=== PATIENT | male | born 1960 | race African-American/Black ===

== ENCOUNTER 2017-12-19 15:36 | Observation (INO) | payer OTHER, SELFPAY ==
[2017-12-19 16:45] LABS: Troponin I Less than 0.010 ng/mL (< 0.028)
[2017-12-19] MEDS ORDERED: Acetaminophen 325 MG TAB PO PRN ×2 (17:45→19:46)
[2017-12-19] MEDS ORDERED: Ondansetron ODT 4 MG TAB SL PRN (17:45)
[2017-12-19] MEDS ORDERED: Ondansetron HCl/PF 4 MG/2 ML Vial IVP PRN (17:45)
[2017-12-19] MEDS ORDERED: Nitroglycerin 2% Ointment 1 INCH/1 GM Packet TOP SCH (18:00)
[2017-12-19 18:02] VITALS: BMI 23.3
[2017-12-19] MEDS ORDERED: Nitroglycerin 0.4 MG TAB (25 Tab Bottle) PO PRN (19:44)
[2017-12-19] MEDS ORDERED: Mag-Al 1200 mg/1200 mg/30 ML UDCUP PO PRN (19:46)
[2017-12-19] MEDS ORDERED: Senokot 8.6 MG TAB PO PRN (19:46)
[2017-12-19] MEDS ORDERED: Calcium Carbonate 500 MG ChewTAB PO PRN (19:46)
[2017-12-19 19:47] LABS: Troponin I Less than 0.010 ng/mL (< 0.028)
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
[2017-12-20] MEDS ORDERED: Lisinopril 20 MG TAB PO SCH (09:00)
[2017-12-20] MEDS ORDERED: Aspirin 325 MG TAB PO SCH (09:00)
[2017-12-20] MEDS ORDERED: Carvedilol 25 MG TAB PO SCH (09:00)
[2017-12-20] MEDS ORDERED: Atorvastatin Calcium 40 MG TAB PO SCH (09:00)
--- NOTE | 2017-12-20 14:31 | NM ---
MYOCARDIAL PERFUSION SCAN WITH SPECT IMAGING: HISTORY: Chest pain. Examination was performed using 29 mCi 99m Technetium sestamibi on the stress and 9 on the resting im ages. This shows a normal distribution of the radiopharmaceutical without signs of ischemia or scar. WALL MOTION: There is symmetric contractility to the ventricle. LEFT VENTRICULAR EJECTION FRACTION: The calculated left ventricular ejection fraction was 50%. IMPRESSION: 1. No evidence of ischemia. 2. Left ventricular ejection fraction calculated at 50%. Please correlate with echocardiogram. POS: LON
[2017-12-20 15:49] VITALS: BP 135/85; TEMP 98.5
== END 2017-12-20 17:09 | disposition home or self-care (01) ==
LOC: ERS 15:36 → 2SW 16:00
PROVIDERS: ADMIT Internal Medicine; ATTEND Internal Medicine
DX: R07.89 Other chest pain (principal); I25.10 Atherosclerotic heart disease of native coronary artery without angina pectoris; Z95.1 Presence of aortocoronary bypass graft; I10 Essential (primary) hypertension; E78.5 Hyperlipidemia, unspecified; F17.210 Nicotine dependence, cigarettes, uncomplicated; Z79.82 Long term (current) use of aspirin; Z79.899 Other long term (current) drug therapy; Z79.1 Long term (current) use of non-steroidal anti-inflammatories (NSAID)
CPT/HCPCS: 36415; 78452; 90471; 90732; 93005; 93017; A9500; G0009; G0378

== ENCOUNTER 2018-03-23 06:26 | Inpatient (IN) | payer SELFPAY ==
[2018-03-23 08:37] LABS: CKMB 25.2 ng/mL (0-6.6); Troponin I 2.443 ng/mL (< 0.028)
[2018-03-23] MEDS ORDERED: Acetaminophen 325 MG TAB PO PRN ×2 (09:31→13:48)
[2018-03-23] MEDS ORDERED: Ondansetron ODT 4 MG TAB PO PRN ×2 (09:32→13:48)
[2018-03-23] MEDS ORDERED: Ondansetron HCl/PF 4 MG/2 ML Vial IVP PRN ×2 (09:32→13:48)
[2018-03-23 09:42] VITALS: BMI 22.7
[2018-03-23] MEDS ORDERED: Aspirin 325 MG TAB PO SCH (09:45)
[2018-03-23 11:41] LABS: Troponin I 3.948 ng/mL (< 0.028)
[2018-03-23] MEDS ORDERED: Carvedilol 3.125 MG TAB PO SCH ×2 (13:02)
[2018-03-23] MEDS ORDERED: Acetaminophen 650 MG Suppository PR PRN (13:48)
[2018-03-23] MEDS ORDERED: Nitroglycerin 2% Ointment 1 INCH/1 GM Packet TOP SCH (14:00)
[2018-03-23] MEDS ORDERED: Enoxaparin Sodium 80 MG/0.8 ML SYRINGE SC SCH ×2 (14:00→17:00)
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
[2018-03-23 14:26] LABS: CKMB 27.2 ng/mL (0-6.6); Troponin I 4.333 ng/mL (< 0.028)
[2018-03-23] MEDS: Nitroglycerin 2% Ointment 1 INCH/1 GM Packet TOP SCH ×2 (15:02→23:11)
[2018-03-23] MEDS: Enoxaparin Sodium 80 MG/0.8 ML SYRINGE SC SCH ×4 (15:03→22:01)
[2018-03-23 16:42] LABS: Hemoglobin 14.4 g/dL (14.0-18.0); Platelet Count 117 thou/uL (130-400)
[2018-03-23] MEDS: Carvedilol 3.125 MG TAB PO SCH (17:01)
[2018-03-23] MEDS ORDERED: Atorvastatin Calcium 40 MG TAB PO SCH (21:00)
[2018-03-23] MEDS: Famotidine 20 MG TAB PO SCH (21:56)
[2018-03-23 22:26] LABS: Critical Call CKMBM RESULT DECREASING; Critical Call Chem Troponin I RESULT DECREASING; Troponin I 3.423 ng/mL (< 0.028)
[2018-03-24] MEDS: Nitroglycerin 2% Ointment 1 INCH/1 GM Packet TOP SCH ×3 (05:59→23:23)
[2018-03-24 06:08] LABS: Anion Gap 12 mmol/L (10-20); BUN (Urea Nitrogen) 13 mg/dL (8.4-25.7); Calc. Creatinine Clearance 65 mL/min (70-130); Calcium 8.8 mg/dL (7.8-10.44); Carbon Dioxide 26 mmol/L (22-29); Cardiac Risk 4.5 (Less than 4.5); Chloride 106 mmol/L (98-107); Cholesterol 122 mg/dl (< 200 Desired); Estimated GFR-MDRD 77; Glucose 133 mg/dL (70-105); HDL Cholesterol 27 mg/dL (>60 Neg Risk); LDL Cholesterol, Calculated 64 mg/dL; Magnesium 2.3 mg/dL (1.6-2.6); Potassium 3.7 mmol/L (3.5-5.1); Sodium 140 mmol/L (136-145); Triglycerides 154 mg/dL (Less than 150)
[2018-03-24 06:11] LABS: CKMB 10.1 ng/mL (0-6.6); Critical Call CKMBM RESULT DECREASING; Critical Call Chem Troponin I RESULT DECREASING; Troponin I 3.372 ng/mL (< 0.028)
[2018-03-24 06:38] LABS: Hemoglobin 14.2 g/dL (14.0-18.0); Lymphocytes 34 % (21-51); MDiff Complete? YES; Mean Corpuscular Hemoglobin 28.7 pg (27.0-31.0); Mean Corpuscular Volume 87.2 fL (78.0-98.0); Mean Platelet Volume 11.4 fL (7.4-10.4); Monocytes 10 % (0-10); Neutrophil 56 % (42-75); PLT Morphology Comment Appears Adequate; Platelet Count 115 thou/uL (130-400); RBC Distribution Width 13.9 % (11.5-14.5); RBC Morphology Normal; Red Blood Cell (RBC) Count 4.95 mill/uL (4.70-6.10); White Blood Cell (WBC) Count 5.9 thou/uL (4.8-10.8)
[2018-03-24] MEDS ORDERED: Sodium Chloride 0.9% 10 ML ONE (08:42)
[2018-03-24] MEDS ORDERED: Lisinopril 20 MG TAB PO SCH (09:00)
[2018-03-24] MEDS: Atorvastatin Calcium 40 MG TAB PO SCH (09:33)
[2018-03-24] MEDS: Aspirin 325 MG TAB PO SCH (09:33)
[2018-03-24] MEDS: Famotidine 20 MG TAB PO SCH ×2 (09:33→20:47)
[2018-03-24] MEDS: Furosemide 20 MG TAB PO SCH (09:34)
[2018-03-24] MEDS: Carvedilol 3.125 MG TAB PO SCH ×2 (09:34→17:43)
[2018-03-24] MEDS: Lisinopril 20 MG TAB PO SCH (09:34)
[2018-03-24] MEDS: Enoxaparin Sodium 80 MG/0.8 ML SYRINGE SC SCH ×2 (09:35→20:48)
--- NOTE | 2018-03-24 13:34 | PDOC.CTH ---
<Tianna Bartlett - Last Filed: 03/24/18 13:32> Cardiology Progress Note - Subjective The pt seen and examined. No overnight events. No cardiac complaints. - Objective Vital Signs Temp Pulse Resp BP BP Pulse Ox 03/24/18 09:34 135/79 03/24/18 08:00 98.0 F 61 18 97 03/24/18 07:52 98.0 F 61 18 135/79 98 03/24/18 04:00 98 F 55 L 16 130/73 95 Weight 145 lb 4.8 oz 03/23/18 03/24/18 03/25/18 06:59 06:59 06:59 Intake Total 720 Balance 720 - Physical Examination General/Neuro: alert & oriented x3 Neck: no JVD present Lungs: CTA Heart: RRR Abdomen: soft Extremities: other: (No edema) - Telemetry Telemetry Rhythm: SR 60s - Labs Result Diagrams: 03/24/18 05:19 03/24/18 05:19 Troponin/CKMB CK-MB (CK-2) 10.1 ng/mL (0-6.6) H* 03/24/18 05:19 Troponin I 3.372 ng/mL (< 0.028) H* 03/24/18 05:19 - Assessment/Plan 1. NSTEMI - Trop trending down. Hx of CAD with s/p CABG in 2009 - stable, Plan for Cardiac cath tomorrow by Dr Miguel. 2. HT N - stable with current medication 3. Hyperlipidemia - on Statin 4. Tobacco abuse - smoking cessation education given to the pt. MAR reviewed * Plan for Cardiac cath tomorrow by Dr Miguel. The procedure and the risk of LHC were explained to the pt, which included but not limited to: Hemorrhage, infection, perforation of catheter, thrombosis, anaphylaxis reaction and damage to renal function by Iodine, CVA, AK, and possible . He voiced understanding and agreed to proceed the procedure tomorrow by Dr Miguel. Review of Systems - Review of Systems Constitutional: reports: no symptoms reported EENTM: reports: no symptoms reported Respiratory: reports: no symptoms reported Cardiac (ROS): reports: no symptoms reported ABD/GI: reports: no symptoms reported : reports: no symptoms reported Musculoskeletal: reports: no symptoms reported <Elio Banks - Last Filed: 03/25/18 10:18> Cardiology Progress Note - Objective Vital Signs Temp Pulse Resp BP BP Pulse Ox 03/25/18 06:12 145/85 H 03/25/18 04:00 98 F 64 14 145/85 H 97 Weight 146 lb 11.2 oz 03/24/18 03/25/18 03/26/18 06:59 06:59 06:59 Intake Total 720 1750 Output Total 3025 Balance 720 -1275 - Labs Result Diagrams: 03/24/18 05:19 03/24/18 05:19 Troponin/CKMB CK-MB (CK-2) 10.1 ng/mL (0-6.6) H* 03/24/18 05:19 Troponin I 3.372 ng/mL (< 0.028) H* 03/24/18 05:19 - Assessment/Plan pt. seen and eval. by me. 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 questions answered.
--- NOTE | 2018-03-24 13:56 | PDOC.PN ---
- Subjective Encounter Start Date: 03/24/18 Encounter Start Time: 10:40 No further CP, case discussed with cardiology Top peaked at just over 4, now coming down, mariano meds, BP under control, plan to see Dr Miguel in AM, likel [facility] No F/C, no N/V/d/C, no SOB, mariano po - Objective Resuscitation Status: Resuscitation Status FULL:Full Resuscitation MAR Reviewed: Yes Vital Signs & Weight: Vital Signs (12 hours) Temp Pulse Resp BP BP Pulse Ox 03/24/18 09:34 135/79 03/24/18 08:00 98.0 F 61 18 97 03/24/18 07:52 98.0 F 61 18 135/79 98 03/24/18 04:00 98 F 55 L 16 130/73 95 Weight Weight 145 lb 4.8 oz I&O: 03/23/18 03/24/18 03/25/18 06:59 06:59 06:59 Intake Total 720 Balance 720 Result Diagrams: 03/24/18 05:19 03/24/18 05:19 Phys Exam - Physical Examination Constitutional: NAD HEENT: PERRLA, moist MMs, sclera anicteric, oral pharynx no lesions Neck: no nodes, no JVD, supple, full ROM Respiratory: no wheezing, no rales, no rhonchi, clear to auscultation bilateral Cardiovascular: RRR, no rub Gastrointestinal: soft, non-tender, no distention, positive bowel sounds Musculoskeletal: edema present Neurological: non-focal, normal sensation, moves all 4 limbs Lymphatic: no nodes Psychiatric: normal affect, A&O x 3 Skin: no rash, normal turgor, cap refill <2 seconds Dx/Plan (1) NSTEMI (non-ST elevated myocardial infarction) Code(s): I21.4 - NON-ST ELEVATION (NSTEMI) MYOCARDIAL INFARCTION Status: Acute (2) HTN (hypertension) Code(s): I10 - ESSENTIAL (PRIMARY) HYPERTENSION Status: Chronic Qualifiers: Hypertension type: essential hypertension Qualified Code(s): I10 - Essential (primary) hypertension (3) HLD (hyperlipidemia) Code(s): E78.5 - HYPERLIPIDEMIA, UNSPECIFIED Status: Chronic Qualifiers: Hyperlipidemia type: unspecified Qualified Code(s): E78.5 - Hyperlipidemia , unspecified (4) Tobacco abuse Code(s): Z72.0 - TOBACCO USE Status: Chronic - Plan cont current plan of care * . follow up on cardilogy recommendations
[2018-03-24] MEDS ORDERED: Communication Order-Pharmacy FS SCH (20:45)
[2018-03-25] MEDS: Lisinopril 20 MG TAB PO SCH (06:12)
[2018-03-25] MEDS: Famotidine 20 MG TAB PO SCH ×2 (06:12→21:27)
[2018-03-25] MEDS: Furosemide 20 MG TAB PO SCH (06:12)
[2018-03-25] MEDS: Nitroglycerin 2% Ointment 1 INCH/1 GM Packet TOP SCH ×2 (06:13→19:50)
[2018-03-25] MEDS: Atorvastatin Calcium 40 MG TAB PO SCH (06:13)
[2018-03-25] MEDS: Carvedilol 3.125 MG TAB PO SCH ×2 (06:13→19:45)
[2018-03-25] MEDS: Aspirin 325 MG TAB PO SCH (06:13)
[2018-03-25] MEDS ORDERED: Sodium Chloride 0.9% 10 ML ONE (08:05)
[2018-03-25] MEDS ORDERED: Heparin 10,000 UNITS/1 ML VIAL ONE (10:10)
[2018-03-25] MEDS ORDERED: Lidocaine 1% (PF) 30 ML VIAL ONE (10:10)
[2018-03-25] MEDS ORDERED: Communication Order-Pharmacy FS SCH (11:00)
[2018-03-25] MEDS ORDERED: Sodium Chloride 0.9% 1,000 ML IV SCH ×2 (11:00→14:30)
[2018-03-25] MEDS ORDERED: Fentanyl 100 MCG/2 ML VIAL ONE (11:43)
[2018-03-25] MEDS ORDERED: Midazolam HCl 2 mg/2 ml Vial ONE (11:43)
[2018-03-25] MEDS ORDERED: Bivalirudin 250 MG VIAL ONE (12:10)
[2018-03-25] MEDS ORDERED: Clopidogrel Bisulfate 300 MG TAB ONE (12:11)
[2018-03-25] MEDS ORDERED: Nitroglycerin 100MG/250ML BOT 250 ML ONE (12:16)
[2018-03-25] MEDS ORDERED: Iopamidol 370 76% 100 ML VIAL ONE (15:29)
[2018-03-25] MEDS ORDERED: Iopamidol 370 76% 50 ML VIAL FS ONE (15:29)
--- NOTE | 2018-03-25 18:10 | CCL ---
[facility] CATHETERIZATION REPORT: Date: 03/25/18 PROCEDURE: Left heart catheterization, selective left coronary arteriography, left ventriculography, bypass graft angiography, BECK injection, and stent placement in the second obtuse marginal and in the mid to distal circumflex. INDICATION: Non-STEMI. PROCEDURE DETAILS: The patient was brought to cardiac pit laborer and right groin was prepped and draped in usual fashion. 1% lidocaine was infiltrated. A 6 Tunisian sheath placed into the right femoral artery and 3000 units of heparin given. A 6 Tunisian angulated pigtail was inserted and pressure obtained. Left ventriculogram was performed using 30 mL of contrast at 12 mL/second in a CRISTINA 30 degree projection. Pressure were obtained and the pigtail was removed. A 6 Tunisian Aris left-4 followed by 6 Tunisian Aris right-4 was used for coronary arteriography. The right-4 was used to opacify the bypass grafts and the BECK. Films were reviewed. Angiomax bolus and drip were started. The patient was given 600 mg Plavix p.o.. A 6 Tunisian left-4 guide catheter was inserted. Floppy Choice wire was advanced into the distal circumflex. The 70% distal circumflex was then stented using a Synergy 3.5 x 12 mm stent, which was deployed, with reduction of the lesion from 70% to 0%. Wire was then directed into the second obtuse marginal. Emerge 1.5 x 20 mm balloon was used to predilate the area and then 2.5 x 20 mm. Then, Synergy 3.0 x 20 mm stent was placed into the second obtuse marginal, positioned and deployed. There appeared to be an area of narrowing and possible dissection distal to the second obtuse marginal takeoff. A second floppy Choice wire was inserted and 3.5 x 15 mm Emerge would not pass and so Emerge 1.5 x 15 mm balloon was then positioned and deployed. The Emerge 3.5 x 15 would then pass, and these were used to crimp the end of the second obtuse marginal stent. There then appeared to be an area of dissection distal to the second obtuse marginal and the continuation of the circumflex. An extra support wire was placed and the area was again dilated with a 3.5 mm balloon. Synergy 3.5 x 20 mm stent was then placed. This tacked up the dissection in the distal circumflex. Sheath was sutured in place and the patient was transferred to U. RESULTS: PRESSURES: Aorta 120/71, mean of 94 Left Ventricle 132/10 LEFT VENTRICULOGRAM: There was an area of mild inferior akinesis with ejection fraction of 50-55%. CORONARY ARTERIOGRAPHY: 1. Left main was 30%. 2. The left anterior descending was totally occluded in its mid portion. 3. The circumflex had a 99% second obtuse marginal. There was 70% distal circumflex. 4. The right coronary artery had a 50% mid stenosis and a 50% distal stenosis. BYPASS GRAFTS: 1. The saphenous vein graft to the LAD was patent. 2. The diagonal graft was occluded. 3. The obtuse marginal graft was occluded. 4. The left radial graft to the right coronary artery was occluded ( anastomosed to the proximal acute marginal graft). 5. Acute marginal graft was occluded. INTERVENTION RESULTS: 1. The 70% distal circumflex lesion was reduced to 0%. 2. The 99% second obtuse marginal lesion was reduced to 0%. IMPRESSION: 1. Three-vessel coronary artery disease. 2. One of five grafts patent. 3. Mild left ventricular dysfunction. 4. Successful stent placement (drug-eluting stent) in the second obtuse marginal and the distal circumflex. [facility]
--- NOTE | 2018-03-25 19:26 | PDOC.PN ---
- Subjective Encounter Start Date: 03/25/18 Encounter Start Time: 19:15 Subjective: f/u s/p C with PCI and LAKE stent placement x 2 to distal cx and -: OM. No new complaints. - Objective Resuscitation Status: Resuscitation Status FULL:Full Resuscitation MAR Reviewed: Yes Vital Signs & Weight: Vital Signs (12 hours) Temp Pulse Resp BP BP BP Pulse Ox 03/25/18 18:15 98.1 F 68 18 142/91 H 159/90 H 100 03/25/18 08:00 97.9 F 54 L 16 133/89 98 Weight Weight 146 lb 11.2 oz I&O: 03/24/18 03/25/18 03/26/18 06:59 06:59 06:59 Intake Total 720 1750 1180 Output Total 3022 1850 Balance 698 -2475 -613 Result Diagrams: 03/24/18 05:19 03/24/18 05:19 Additional Labs: Laboratory Tests 03/23/18 03/23/18 03/23/18 07:51 10:52 13:42 Troponin I 2.443 H* 3.948 H* 4.333 H* Triglycerides Cholesterol LDL Cholesterol, Calc HDL Cholesterol 03/23/18 03/24/18 03/24/18 21:52 05:19 05:19 Troponin I 3.423 H* 3.372 H* Triglycerides 154 H Cholesterol 122 LDL Cholesterol, Calc 64 HDL Cholesterol 27 EKG Reviewed by me: Yes (Tele - SR) Phys Exam - Physical Examination Constitutional: NAD HEENT: PERRLA, sclera anicteric, oral pharynx no lesions Neck: no nodes, no JVD, supple, full ROM Respiratory: no wheezing, no rales, no rhonchi, clear to auscultation bilateral S1, S2 Cardiovascular: RRR, no significant murmur, no rub, gallop Gastrointestinal: soft, non-tender, no distention, positive bowel sounds Musculoskeletal: no edema, pulses present Neurological: normal sensation, moves all 4 limbs Psychiatric: normal affect, A&O x 3 Skin: no rash, normal turgor, cap refill <2 seconds Dx/Plan (1) NSTEMI (non-ST elevated myocardial infarction) Code(s): I21.4 - NON-ST ELEVATION (NSTEMI) MYOCARDIAL INFARCTION Status: Acute Comment: s/p PCI with LAKE x 2 to distal circumflex and OM, continue ASA/ Plavix, Lipitor, Coreg (2) 3-vessel CAD Status: Acute Comment: See #1 above for mgmt (3) HLD (hyperlipidemia) Code(s): E78.5 - HYPERLIPIDEMIA, UNSPECIFIED Status: Chronic Qualifiers: Hyperlipidemia type: unspecified Qualified Code(s): E78.5 - Hyperlipidemia , unspecified Comment: Continue high-dose Lipitor 80mg HS (4) HTN (hypertension) Code(s): I10 - ESSENTIAL (PRIMARY) HYPERTENSION Status: Chronic Qualifiers: Hypertension type: essential hypertension Qualified Code(s): I10 - Essential (primary) hypertension Comment: Optimize BP regimen (5) Tobacco abuse Code(s): Z72.0 - TOBACCO USE Status: Chronic Comment: Tobacco cessation - Plan 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
[2018-03-26 03:39] VITALS: TEMP 98.6
[2018-03-26 06:16] LABS: ALT (SGPT) 32 U/L (8-55); AST (SGOT) 46 U/L (5-34); Albumin 3.6 g/dL (3.5-5.0); Alkaline Phosphatase 56 U/L (40-150); Anion Gap 10 mmol/L (10-20); BUN (Urea Nitrogen) 14 mg/dL (8.4-25.7); Bilirubin, Total 0.6 mg/dL (0.2-1.2); Calc. Creatinine Clearance 65 mL/min (70-130); Calcium 8.9 mg/dL (7.8-10.44); Carbon Dioxide 26 mmol/L (22-29); Chloride 108 mmol/L (98-107); Estimated GFR-MDRD 77; Globulin 2.7 g/dL (2.4-3.5); Glucose 102 mg/dL (70-105); Potassium 4.2 mmol/L (3.5-5.1); Protein, Total 6.3 g/dL (6.0-8.3); Sodium 140 mmol/L (136-145)
[2018-03-26] MEDS ORDERED: Clopidogrel Bisulfate 75 MG TAB PO SCH (09:00)
[2018-03-26] MEDS: Atorvastatin Calcium 40 MG TAB PO SCH (10:25)
[2018-03-26] MEDS: Carvedilol 3.125 MG TAB PO SCH (10:25)
[2018-03-26] MEDS: Lisinopril 20 MG TAB PO SCH (10:25)
[2018-03-26] MEDS: Furosemide 20 MG TAB PO SCH (10:25)
[2018-03-26] MEDS: Famotidine 20 MG TAB PO SCH (10:25)
[2018-03-26] MEDS: Aspirin 325 MG TAB PO SCH (10:25)
[2018-03-26 10:37] LABS: #Eosinphils 0.1 thou/uL (0.0-0.7); #Lymphocytes 1.9 thou/uL (1.20-3.40); #Monocytes 0.7 thou/uL (0.11-0.59); #Neutrophils 4.4 thou/uL (1.40-6.50); %Basophils 0.6 % (0.0-1.0); %Eosinophils 1.7 % (0.0-10.0); %Lymphocytes 26.7 % (21.0-51.0); %Monocytes 10.2 % (0.0-10.0); %Neutrophils 60.8 % (42.0-75.0); Hemoglobin 14.4 g/dL (14.0-18.0); Mean Corpuscular HGB CONC 32.3 g/dL (32.0-36.0); Mean Corpuscular Hemoglobin 28.2 pg (27.0-31.0); Mean Corpuscular Volume 87.3 fL (78.0-98.0); Mean Platelet Volume 11.6 fL (7.4-10.4); Platelet Count 135 thou/uL (130-400); Red Blood Cell (RBC) Count 5.11 mill/uL (4.70-6.10); White Blood Cell (WBC) Count 7.2 thou/uL (4.8-10.8)
--- NOTE | 2018-03-26 11:23 | DIS ---
DATE OF ADMISSION: 03/23/2018 DATE OF DISCHARGE: 03/26/2018 DISCHARGE DIAGNOSES: 1. Non-ST elevation myocardial infarction. 2. Three vessel coronary artery disease. 3. Status post percutaneous coronary intervention with drug-eluting stent x2 to the distal circumfle x and obtuse marginal on 03/25/2018. 4. Hyperlipidemia. 5. Hypertension. 6. Tobacco abuse. CONSULTATIONS: Dr. Miguel and Dr. Banks with Cardiology Service. PERTINENT LABORATORY AND X-RAY FINDINGS: Basic metabolic profile within normal limits. Magnesium 2. 3, troponin I ranged between 2.44-4.33, total cholesterol 122, triglycerides 154, HDL 27, LDL 64. CB C showed a platelet count ranging between 115-117. Portable chest x-ray dated 03/23/2018 showed no a cute cardiopulmonary process. Left heart catheterization dated 03/25/2018 showed 3-vessel coronary a rtery disease with drug-eluting stent placement to the distal circumflex and obtuse marginal-2. Ejec tion fraction 50-55%. HOSPITAL COURSE: The patient who initially presented with complaints of chest pain with evidence of elevated troponin I and non-ST elevation myocardial infarction. The patient with a longstanding hist ory of coronary artery disease status post coronary artery bypass grafting. The patient underwent a cardiac catheterization on 03/25/2018 showing severe 3-vessel coronary artery disease with 1 of 5 pat ent prior coronary grafts. The patient underwent drug-eluting stent placement to obtuse marginal-2 a nd distal circumflex with excellent flow established. The patient was monitored postoperatively with out evidence of acute arrhythmia or dysrhythmia. The patient was titrated on Plavix 75 mg daily, in addition to 81 mg of aspirin for dual antiplatelet therapy. The patient overall remained clinically stable during the hospital course, tolerating regular oral intake with stable vital signs. The patie nt was given education and encouragement on tobacco cessation as well as resources for discharge. I have examined the patient at time of discharge and discussed followup instructions at which patient v erbalized understanding and agreement. The patient overall clinically stable and ready for discharge on 03/26/2018. DISCHARGE MEDICATIONS: 1. Lipitor 80 mg 1 tab p.o. daily. 2. Lasix 20 mg p.o. q.a.m. 3. Meloxicam 15 mg p.o. daily. 4. Enteric-coated aspirin 81 mg p.o. daily. 5. Plavix 75 mg 1 tab p.o. daily. 6. Coreg 3.125 mg p.o. b.i.d. 7. Lisinopril 20 mg p.o. daily. FOLLOWUP: Patient to follow up with his primary care provider, Dr. Ngozi Barrera within 7 days o f discharge. The patient will follow up with Dr. Rodolfo Miguel with [facility] Cardiology [facility] ce and to call his office for appointment time and date. CONDITION ON DISCHARGE: Stable. ACTIVITY: Ad bernie. DIET: Heart healthy. CODE STATUS: Full. DISPOSITION: Home on 03/26/2018. Total time preparing and coordinating discharge was 32 minutes.
[2018-03-26 13:29] VITALS: BP 142/83
--- NOTE | 2018-03-26 17:42 | EKG ---
Test Reason : POST STENTS X 3 Blood Pressure : / mmHG Vent. Rate : 054 BPM Atrial Rate : 054 BPM P-R Int : 140 ms QRS Dur : 088 ms QT Int : 462 ms P-R-T Axes : 024 035 071 degrees QTc Int : 438 ms Sinus bradycardia Left ventricular hypertrophy with repolarization abnormality Abnormal ECG When compared with ECG of 23-MAR-2018 06:29, (Unconfirmed) Premature atrial complexes are no longer Present T wave inversion no longer evident in Anterior leads Confirmed by DR. Malachi ROBISON ([id number]) on 03/26/2018 5:42:30 PM Referred By: MAYANK Confirmed By:DR. Malachi ROBISON
--- NOTE | 2018-03-26 17:44 | EKG ---
Test Reason : Blood Pressure : / mmHG Vent. Rate : 060 BPM Atrial Rate : 060 BPM P-R Int : 122 ms QRS Dur : 086 ms QT Int : 448 ms P-R-T Axes : 078 038 -59 degrees QTc Int : 448 ms Normal sinus rhythm Left ventricular hypertrophy with repolarization abnormality Abnormal ECG When compared with ECG of 25-MAR-2018 14:46, (Unconfirmed) Nonspecific T wave abnormality, worse in Inferior leads Confirmed by DR. Malachi ROBISON ([id number]) on 03/26/2018 5:44:33 PM Referred By: MAYANK Confirmed By:DR. Malachi ROBISON
--- NOTE | 2018-03-27 13:57 | HP ---
DATE OF ADMISSION: 03/23/2018 PRIMARY CARE PHYSICIAN: Dr. Ngozi Barrera CHIEF COMPLAINT: Chest pain. TIME OF SERVICE: 824 HISTORY OF PRESENT ILLNESS: Mr. Austin is a 57-year-old male with history of known coronary artery disease, hyperlipidemia, hypertension, history of coronary artery bypass grafting x5 vessels back in 2009. The patient has been having intermittent chest pain for the last 4 days and it lasted anywhere from seconds to 15 minutes. He initially noted no exacerbating or relieving factors. When he got n itro paste at the outside emergency department that he presented to, his symptoms markedly improved. No diaphoresis or sweats. No fevers or chills. No cough or sputum production. No orthopnea. No d iarrhea, constipation, no GI bleeding. Workup at the outside emergency department showed a troponin of 0.8 and a CK at 300. He was given Lo venox and transferred here. On arrival here, follow up troponin was elevated at 2.443 and we were subsequently called for admissi on. The patient is currently chest pain free. No other current complaints. PAST MEDICAL HISTORY: 1. Hypertension. 2. Hyperlipidemia. 3. Coronary artery disease, status post bypass x5 vessels in the past. 4. Ongoing tobacco abuse. PAST SURGICAL HISTORY: 1. Includes a coronary artery bypass grafting x5 vessels in 2009. 2. ____ removal from his back in 1984. HOME MEDICATIONS: 1. Lipitor 80 mg p.o. at bedtime. 2. Lasix 20 mg daily. 3. Carvedilol 12.5 mg p.o. b.i.d. 4. Aspirin 81 mg daily. 5. Meloxicam 50 mg p.o. daily. 6. Lisinopril 20 mg daily. 7. Famotidine 20 mg p.o. b.i.d. ALLERGIES: NKDA. FAMILY HISTORY: Negative for history of clotting or bleeding disorder, no immune dysfunction, hypert ension and coronary disease. SOCIAL HISTORY: Negative for alcohol or drug use. He does smoke about half pack per day and has smo ked for many years. REVIEW OF SYSTEMS: All systems reviewed and negative except as stated per HPI. PHYSICAL EXAMINATION: VITAL SIGNS: Temperature on my evaluation 98.2, pulse 56, blood pressure 128/82, respiratory 18, O2 sat 98% on room air. GENERAL: He is awake, he is alert. He is oriented x3. He is a well-developed, well-nourished male who appears to be in no acute distress. HEENT: Normocephalic, atraumatic. Pupils equal, round, reactive to light bilaterally. Mucous membr anes are moist. No visible lesions or thrush. NECK: Supple. No lymphadenopathy, JVD, or thyromegaly. No carotid bruit. LUNGS: Clear. No wheezes, no rales, no rhonchi. He has normal inspiratory and expiratory phase. N o prolonged expiration. CARDIOVASCULAR: Normal S1, S2. No S3 or S4. There are no audible murmurs. ABDOMEN: Soft, it is nontender, nondistended. Good bowel sounds in all 4 quadrants. No rebound, ri gidity or guarding. EXTREMITIES: No cyanosis, no clubbing, no edema with good pedal pulses. MUSCULOSKELETAL: Normal to inspection. Large joints appear normal. There is no evidence of inflamm ation or palpable effusion. NEUROLOGIC: Cranial nerves II through XII are grossly intact. He has no focal deficits, 5/5 strengt h and normal speech pattern. LABORATORY DATA: Sodium 143, potassium 3.5, chloride 110, bicarbonate 25, BUN 11, creatinine 1.09, g lucose 98, calcium 9.3. Liver function within normal limits. CK elevated at 312, CK-MB done here is 25.2. Troponin I in [place] was 0.82 at 0350 and 2.443 at 0751. BNP elevated at 221.5. CBC showed a white count of 7.0, hemoglobin 15.0, hematocrit 47.0, platelet count is 162,000. He has a fairly normal differential. Chest x-ray showed no acute cardiopulmonary disease in [place]. ASSESSMENT AND PLAN: 1. Non-ST elevation myocardial infarction, we will consult Cardiology. Start on Lovenox and continu e on beta rosalino, KEVIN inhibitor, and nitrate. We will trend troponins and follow up on Cardiology r ecommendations. 2. Hypertension, continue home medications. 3. Ongoing tobacco abuse. Counseling was given. The patient currently has no desire to quit at thi s point. 4. Hyperlipidemia, on atorvastatin, we will continue. We will check fasting lipid profile in the mo rning.
--- NOTE | 2018-04-06 12:34 | EKG ---
Test Reason : Blood Pressure : / mmHG Vent. Rate : 060 BPM Atrial Rate : 060 BPM P-R Int : 128 ms QRS Dur : 074 ms QT Int : 434 ms P-R-T Axes : 039 032 -57 degrees QTc Int : 434 ms Sinus rhythm with Premature atrial complexes Abnormal ECG Confirmed by MAGGY FUNG, KATHARINA ([id number]), graphic editor HECTOR MATTHEW ([id number]) on 04/06/2018 12:33:56 PM Referred By: Confirmed By:KATHARIAN WINTER MD
== END 2018-03-26 15:05 | disposition home or self-care (01) | DRG 247 ==
LOC: ERS 06:26 → 2NO 09:26
PROVIDERS: ADMIT Internal Medicine Infectious Disease; ATTEND Internal Medicine Infectious Disease
PROC: 027135Z Dilation of Coronary Artery, Two Arteries with Two Drug-eluting Intraluminal Devices, Percutaneous Approach (ICD-10-PCS; principal; 2018-03-25)
PROC: 4A023N7 Measurement of Cardiac Sampling and Pressure, Left Heart, Percutaneous Approach (ICD-10-PCS; 2018-03-25)
PROC: B2111ZZ Fluoroscopy of Multiple Coronary Arteries using Low Osmolar Contrast (ICD-10-PCS; 2018-03-25)
PROC: B2151ZZ Fluoroscopy of Left Heart using Low Osmolar Contrast (ICD-10-PCS; 2018-03-25)
DX: I21.4 Non-ST elevation (NSTEMI) myocardial infarction (principal); I25.10 Atherosclerotic heart disease of native coronary artery without angina pectoris; E78.5 Hyperlipidemia, unspecified; I10 Essential (primary) hypertension; F17.210 Nicotine dependence, cigarettes, uncomplicated; Z95.1 Presence of aortocoronary bypass graft
CPT/HCPCS: 36415; 80048; 80053; 80061; 82553; 83735; 84484; 85025; 85347; 92928; 93005; 93010; 93455; 93798; 99152; 99153; A4216; C1725; C1769; C1874; C1887; C9600; J0583; J1644; J1650; J2001; J2250; J3010

== ENCOUNTER 2025-05-05 20:55 | Inpatient (IN) | payer BC, MEDICARE, SELFPAY ==
[2025-05-05 21:41] LABS: #Basophils 0.03 10x3/uL (0.0-0.2); #Eosinophils 0.08 10x3/uL (0.0-0.7); #Monocytes 0.62 10x3/uL (0.11-0.59); #Neutrophils 3.83 10x3/uL (1.40-6.50); %Basophils 0.4 % (0.0-1.0); %Eosinophils 1.2 % (0.0-10.0); %Lymphocytes 33.1 % (21.0-51.0); %Monocytes 9.1 % (0.0-10.0); %Neutrophils 56.1 % (42.0-75.0); Hematocrit 37.9 % (42.0-52.0); Hemoglobin 12.4 g/dL (14.0-18.0); Mean Corpuscular Hemoglobin 28.1 pg (27.0-31.0); Mean Corpuscular Volume 85.9 fL (78.0-98.0); Platelet Count 123 10x3/uL (130-400); Red Blood Cell (RBC) Count 4.41 mill/uL (4.70-6.10); White Blood Cell (WBC) Count 6.83 10x3/uL (4.8-10.8)
[2025-05-05 21:51] LABS: ALT (SGPT) 21 U/L (Less than 45); AST (SGOT) 91 U/L (11-34); Albumin 3.4 g/dL (3.1-4.5); Alkaline Phosphatase 55 U/L (40-110); Anion Gap 12 mmol/L (10-20); BUN (Urea Nitrogen) 11 mg/dL (8.4-25.7); Bilirubin, Total 1.0 mg/dL (0.3-1.2); Calc. Creatinine Clearance 0 mL/min (70-130); Calcium 8.7 mg/dL (7.8-10.44); Carbon Dioxide 26 mmol/L (23-31); Chloride 104 mmol/L (98-107); Globulin 2.9 g/dL (2.4-3.5); Glucose 78 mg/dL (80-115); Potassium 3.7 mmol/L (3.5-5.1); Sodium 138 mmol/L (136-145)
[2025-05-05] MEDS ORDERED: Acetaminophen 325 MG TAB PO PRN (23:00)
[2025-05-05] MEDS ORDERED: Ondansetron PF 4 MG/2 ML Vial IVP PRN ×2 (23:00→23:13)
[2025-05-05] MEDS ORDERED: Calcium Carbonate 500 MG ChewTAB PO PRN (23:13)
[2025-05-06 00:38] VITALS: BMI 18.1
[2025-05-06 07:36] LABS: ALT (SGPT) 18 U/L (Less than 45); AST (SGOT) 66 U/L (11-34); Albumin 3.1 g/dL (3.1-4.5); Alkaline Phosphatase 56 U/L (40-110); Anion Gap 10 mmol/L (10-20); BUN (Urea Nitrogen) 14 mg/dL (8.4-25.7); Bilirubin, Total 0.7 mg/dL (0.3-1.2); Calc. Creatinine Clearance 37 mL/min (70-130); Calcium 8.5 mg/dL (7.8-10.44); Carbon Dioxide 26 mmol/L (23-31); Chloride 108 mmol/L (98-107); Globulin 2.7 g/dL (2.4-3.5); Glucose 104 mg/dL (80-115); Potassium 3.4 mmol/L (3.5-5.1); Sodium 141 mmol/L (136-145)
[2025-05-06] MEDS ORDERED: PHENYLEPHRINE-NS 100 MCG/ML 10 ML SYRINGE ONE (07:55)
[2025-05-06] MEDS ORDERED: Nitroglycerin 50 MG/250 ML BOT 250 ML ONE (07:55)
[2025-05-06] MEDS ORDERED: Adenosine 6 mg (2 mL) VIAL ONE (07:55)
[2025-05-06] MEDS ORDERED: Heparin 10,000 UNITS/ 10 ML VIAL ONE ×2 (07:55→08:37)
[2025-05-06] MEDS ORDERED: Lidocaine 1% (PF) 30 ML VIAL ONE (07:55)
[2025-05-06] MEDS ORDERED: Ondansetron PF 4 MG/2 ML Vial ONE (07:58)
[2025-05-06] MEDS ORDERED: Nitroglycerin 0.4 MG TAB (25 Tab Bottle) SL PRN (08:48)
[2025-05-06] MEDS ORDERED: Acetaminophen/Codeine 30-300mg Tablet PO PRN (08:48)
[2025-05-06 09:17] LABS: Hematocrit 38.3 % (42.0-52.0); Hemoglobin 12.9 g/dL (14.0-18.0); Mean Corpuscular Hemoglobin 28.7 pg (27.0-31.0); Mean Corpuscular Volume 85.1 fL (78.0-98.0); Platelet Count 124 10x3/uL (130-400); Red Blood Cell (RBC) Count 4.50 mill/uL (4.70-6.10); White Blood Cell (WBC) Count 6.82 10x3/uL (4.8-10.8)
[2025-05-06 09:18] LABS: #Basophils 0.03 10x3/uL (0.0-0.2); #Eosinophils 0.12 10x3/uL (0.0-0.7); #Monocytes 0.83 10x3/uL (0.11-0.59); #Neutrophils 3.28 10x3/uL (1.40-6.50); %Basophils 0.4 % (0.0-1.0); %Eosinophils 1.8 % (0.0-10.0); %Lymphocytes 37.1 % (21.0-51.0); %Monocytes 12.2 % (0.0-10.0); %Neutrophils 48.1 % (42.0-75.0)
[2025-05-06] MEDS: Aspirin 81 mg Enteric Coated Tablet PO SCH (13:49)
[2025-05-06] MEDS: Acetaminophen/Codeine 30-300mg Tablet PO PRN (14:16)
[2025-05-06] MEDS ORDERED: Iopamidol 370 76% 100 ML VIAL ONE (14:19)
[2025-05-06] MEDS: Carvedilol 25 MG TAB PO SCH (14:55)
[2025-05-06] MEDS: Acetaminophen 325 MG TAB PO PRN (17:04)
[2025-05-07 04:16] LABS: #Basophils 0.03 10x3/uL (0.0-0.2); #Eosinophils 0.07 10x3/uL (0.0-0.7); #Monocytes 0.71 10x3/uL (0.11-0.59); #Neutrophils 3.55 10x3/uL (1.40-6.50); %Basophils 0.5 % (0.0-1.0); %Eosinophils 1.1 % (0.0-10.0); %Lymphocytes 33.3 % (21.0-51.0); %Monocytes 10.8 % (0.0-10.0); %Neutrophils 54.0 % (42.0-75.0); Hematocrit 33.6 % (42.0-52.0); Hemoglobin 10.9 g/dL (14.0-18.0); Mean Corpuscular Hemoglobin 27.7 pg (27.0-31.0); Mean Corpuscular Volume 85.5 fL (78.0-98.0); Platelet Count 109 10x3/uL (130-400); Red Blood Cell (RBC) Count 3.93 mill/uL (4.70-6.10); White Blood Cell (WBC) Count 6.57 10x3/uL (4.8-10.8)
[2025-05-07 04:37] LABS: ALT (SGPT) 13 U/L (Less than 45); AST (SGOT) 37 U/L (11-34); Albumin 2.8 g/dL (3.1-4.5); Alkaline Phosphatase 45 U/L (40-110); Anion Gap 10 mmol/L (10-20); BUN (Urea Nitrogen) 11 mg/dL (8.4-25.7); Bilirubin, Total 0.9 mg/dL (0.3-1.2); Calc. Creatinine Clearance 42 mL/min (70-130); Calcium 8.0 mg/dL (7.8-10.44); Carbon Dioxide 23 mmol/L (23-31); Chloride 108 mmol/L (98-107); Globulin 2.4 g/dL (2.4-3.5); Glucose 78 mg/dL (80-115); Potassium 3.8 mmol/L (3.5-5.1); Sodium 137 mmol/L (136-145)
[2025-05-07] MEDS: PNEUMOC 20-VAL CONJ-DIP CRM/PF 0.5 ML SYRINGE IM ONE (07:35)
[2025-05-07] MEDS: Losartan 25 MG TAB PO SCH (08:58)
[2025-05-08 07:39] VITALS: BP 126/81; TEMP 97.6
== END 2025-05-08 10:49 | disposition home or self-care (01) | DRG 282 ==
LOC: ERS 20:55 → ERHOLD 22:53 → OBSVTOIN 23:14 → 2SE 05-06 09:14 → CCU 05-06 10:17 → PCU 05-07 08:01
PROVIDERS: ADMIT Student in an Organized Health Care Education/Training Program; ATTEND Internal Medicine
PROC: 3E033XZ Introduction of Vasopressor into Peripheral Vein, Percutaneous Approach (ICD-10-PCS; principal; 2025-05-06)
DX: I21.4 Non-ST elevation (NSTEMI) myocardial infarction (principal); I10 Essential (primary) hypertension; I25.10 Atherosclerotic heart disease of native coronary artery without angina pectoris; F17.210 Nicotine dependence, cigarettes, uncomplicated; Z95.1 Presence of aortocoronary bypass graft; Z95.5 Presence of coronary angioplasty implant and graft; Z79.82 Long term (current) use of aspirin; Z79.899 Other long term (current) drug therapy
CPT/HCPCS: 36415; 80053; 83880; 84484; 85025; 85347; 92928; 92972; 92978; 92979; 93005; 93010; 93306; 93459; 97139; 99152; 99153; 99285; C1753; C1760; C1761; C1769; C1874; C1887; C1894; C1984; C9600; J0153; J0461; J1644; J2003; J2250; J2270; J2405; J3010; J7030; Q9967